=== PATIENT | male | born 1995 | race American Indian/Alaskan Native ===

== ENCOUNTER 2020-01-09 22:37 | Emergency (ER) | payer SELFPAY ==
[2020-01-09 22:54] VITALS: BP 130/63
--- NOTE | 2020-01-10 00:02 | XRay Report ---
LEFT FOOT 3 VIEWS 2345 INDICATION: foreign body COMPARISON: None available. FINDINGS: No fractures or dislocations are seen. No soft tissue gas is noted. No obvious foreign body is identified. Signer Name: Homero Meadows MD Signed: 01/09/2020 11:57 PM Workstation Name: [id number]
[2020-01-10] MEDS ORDERED: DIPHtheria,PERTUSSIS(ACELL),TETANUS VACCINE/PF 0.5 ML VIAL IM ONE (00:49)
--- NOTE | 2020-01-10 00:52 | Emergency Department Report ---
- General Chief Complaint: Puncture Wound Stated Complaint: TETANUS SHOT Time Seen by Provider: 01/10/20 00:17 Source: patient Mode of arrival: Ambulatory Limitations: No Limitations - History of Present Illness Initial Comments: Patient is a 24-year-old male presents emergency room with complaints of stepping on a thumbtack to the left foot that occurred around 6 PM today. He s tates that it was barefoot when it occurred. He states that he was able to remove it himself at home without any difficulty. He denies any bleeding currently. He is ambulatory without any difficulty. He is unsure of his last tetanus immunization. He denies any numbness or weakness. No past medical history. No allergies to medications. - Related Data Allergies Allergy/AdvReac Type Severity Reaction Status Date / Time No Known Allergies Allergy Unverified 01/09/20 22:54 ED Review of Systems ROS: Stated complaint: TETANUS SHOT Other details as noted in HPI Comment: All other systems reviewed and negative ED Past Medical Hx - Past Medical History Previous Medical History?: No - Surgical History Past Surgical History?: No - Social History Smoking Status: Never Smoker Substance Use Type: None ED Physical Exam - General Limitations: No Limitations General appearance: alert, in no apparent distress - Head Head exam: Present: atraumatic, normocephalic - Eye Eye exam: Present: normal appearance - ENT ENT exam: Present: mucous membranes moist - Extremities Exam Extremities exam: Present: other (no obvious signs of puncture wound to the plantar foot, no ttp of any area of the plantar foot, FROM of the left ankle, foot, and toes, neurovascularly intact) - Neurological Exam Neurological exam: Present: alert, oriented X3 - Psychiatric Psychiatric exam: Present: normal affect, normal mood - Skin Skin exam: Present: warm, dry ED Course Vital Signs 01/09/20 22:46 Temperature 98.3 F Pulse Rate 77 Respiratory 16 Rate Blood Pressure 130/63 O2 Sat by Pulse 97 Oximetry ED Medical Decision Making - Radiology Data Radiology results: report reviewed LEFT FOOT 3 VIEWS 8145 INDICATION: foreign body COMPARISON: None available. FINDINGS: No fractures or dislocations are seen. No soft tissue gas is noted. No obvious foreign body is identified. Signer Name: Homero Meadows MD Signed: 01/09/2020 11:57 PM Workstation Name: [id number] Transcribed By: KULDEEP Dictated By: Homero Meadows MD Electronically Authenticated By: Homero Meadows MD Signed Date/Time: 01/09/202356 DD/ 56 TD/TT: - Medical Decision Making Patient is a 24-year-old male presents emergency room with complaints of stepping on a thumbtack to the left foot that occurred around 6 PM today. He states that it was barefoot when it occurred. He states that he was able to remove it himself at home without any difficulty. He denies any bleeding currently. He is ambulatory without any difficulty. He is unsure of his last tetanus immunization. He denies any numbness or weakness. No past medical history. No allergies to medications. VSS. on exam: no obvious signs of puncture wound to the plantar foot, no ttp of any area of the plantar foot, FROM of the left ankle, foot, and toes, neurovascularly intact. xr left foot ordered prior to my examination and shows No fractures or dislocations are seen. No soft tissue gas is noted. No obvious foreign body is identified. Patient given tetanus immunization. No need for antibiotics at this time, patient was not wearing shoes, there is no obvious puncture wound visualized, there is no bleeding. advised pt May take ibuprofen or Tylenol as needed for discomfort. May soak foot in Epson salt bath. Follow-up with a primary care doctor. Return to emergency room for any new or worsening symptoms or any signs of infection. Critical care attestation.: If time is entered above; I have spent that time in minutes in the direct care of this critically ill patient, excluding procedure time. ED Disposition Clinical Impression: Puncture wound of foot Qualifiers: Encounter type: initial encounter Laterality: left Qualified Code(s): S91.332A - Puncture wound without foreign body, left foot, initial encounter Disposition: DC-01 TO HOME OR SELFCARE Is pt being admited?: No Does the pt Need Aspirin: No Condition: Stable Instructions: Puncture Wound (ED) Additional Instructions: May take ibuprofen or Tylenol as needed for discomfort. May soak foot in Epson salt bath. Follow-up with a primary care doctor. Return to emergency room for any new or worsening symptoms or any signs of infection. Referrals: VIK ROSADO MD [Staff Physician] - 2-3 Days [facility] [Provider Group] - 2-3 Days [facility] [Outside] - 2-3 Days Time of Disposition: 00:51 Print Language: VIET[place]
== END 2020-01-10 01:24 | disposition home or self-care (01) ==
LOC: ED 22:37
DX: S91.332A Puncture wound without foreign body, left foot, initial encounter (principal); X58.XXXA Exposure to other specified factors, initial encounter; Y93.89 Activity, other specified; Y92.89 Other specified places as the place of occurrence of the external cause; Y99.8 Other external cause status
CPT/HCPCS: 90471; 90715; 99283